=== PATIENT | male | born 1965 | race Caucasian/White ===

== ENCOUNTER 2024-10-31 04:26 | Emergency (ER) | payer MEDICAID, SELFPAY ==
--- NOTE | 2024-10-31 | ECG_ITS ---
Test Reason : CP Blood Pressure : */* mmHG Vent. Rate : 187 BPM Atrial Rate : * BPM P-R Int : * ms QRS Dur : 78 ms QT Int : 260 ms P-R-T Axes : * 70 44 degrees QTcB Int : 458 ms Supraventricular tachycardia Abnormal ECG No previous ECGs available Referred By: Generic ED Physician Electronically Signed By: NAYAN MEJIA
--- NOTE | 2024-10-31 | ECG_ITS ---
Test Reason : TACHYCARDIA Blood Pressure : */* mmHG Vent. Rate : 128 BPM Atrial Rate : 128 BPM P-R Int : 138 ms QRS Dur : 74 ms QT Int : 294 ms P-R-T Axes : 60 64 55 degrees QTcB Int : 429 ms Sinus tachycardia Otherwise normal ECG When compared with ECG of 31-Oct-2024 04:30, Rhythm change Referred By: Shila Major Electronically Signed By: NAYAN MEJIA
[2024-10-31 04:35] VITALS: BP 148/100; PULSE 182; RESP 16; O2SAT 97; BMI 29.6
[2024-10-31] MEDS: Adenosine 6 MG/2 ML VIAL IVPUSH (04:43)
--- NOTE | 2024-10-31 04:45 | ED.CHESTPAIN ---
HPI - Chest Pain General Chief Complaint: Chest Pain Stated Complaint: chest pain Time Seen by Provider: 10/31/24 04:36 Source: patient Mode of arrival: ambulatory Limitations: no limitations History of Present Illness ED Provider: Dr. Major [facility] narrative: This is a 59-year-old male presented hospital today for evaluation of chest pain and palpitation. Patient stated that he was drinking earlier last night however he did not have much to drink he went to take a shower and he felt very diaphoretic and developed chest pain. Upon arrival patient's heart rate was in the 180s. Appears to be in SVT patient was brought back to the room. Blood pressure is stable. Related Data Allergies Allergy/AdvReac Type Severity Reaction Status Date / Time No Known Allergies Allergy Unverified 10/31/24 04:37 Review of Systems Review of Systems: Pertinent review of systems as mentioned in HPI. All other system otherwise negative. [facility] Past Medical History [facility] Narrative: Medical history as mentioned in [facility] Social History Social History Alcohol intake: current Smoked in Last 30 Days: Yes Use of substances other than those prescribed or required for medical reasons: Yes Substance Use Type: Crack/Cocaine Advance Directives: No Advance Directives Information Provided: Yes Physical Exam Exam: Exam: General: Appears to be in distress, diaphoretic Head: Normacephalic, atraumatic ENT: oral mucosa moist, neck supple, no tracheal deviation Cardiovascular: Tachycardic rate, regular rhythm, no murmurs, rubbing, gallops Respiratory: CTAB, no wheeze, rales, rhonchi Gastrointestinal: Soft, non distended, non tender, non guarding Extremities: No limb pain or swelling, no calf tenderness Neurological: Awake and alert, no facial droop noted Skin: Warm and dry Psychiatric: Appropriate mood and thoughts Vital Signs: Vital Signs: Last Vital Signs Temp 97.4 F 10/31/24 06:08 Pulse 104 H 10/31/24 06:25 Resp 20 10/31/24 06:25 BP 136/88 10/31/24 06:25 Pulse Ox 96 10/31/24 06:25 O2 Del Method Room Air 10/31/24 06:25 BMI result Body Mass Index 29.6 Medications Administered Generic Name Dose Route Start Last Admin Trade Name Freq PRN Reason Stop Dose Admin Lactated Ringer's 1,000 mls @ 999 mls/hr 10/31/24 06:45 10/31/24 07:07 Lr IV 10/31/24 07:45 999 mls/hr .Q1H1M ROBERT Administration Discontinued Medications Generic Name Dose Route Start Last Admin Trade Name Moses PRN Reason Stop Dose Admin Adenosine 6 mg 10/31/24 04:37 10/31/24 04:43 Adenosine 6 Mg/2 Ml Vial IVPUSH 10/31/24 04:38 6 mg ONCE ONE Administration Sodium Chloride 1,000 mls @ 999 mls/hr 10/31/24 04:45 10/31/24 05:59 Ns IV 10/31/24 05:45 Infused .Q1H1M ROBERT Infusion Lactated Ringer's 1,000 mls @ 999 mls/hr 10/31/24 06:30 10/31/24 06:26 Lr IV 10/31/24 07:30 999 mls/hr .Q1H1M ROBERT Administration Ondansetron HCl 4 mg 10/31/24 04:46 10/31/24 04:49 Ondansetron Hcl 4 Mg/2 Ml Vial IVPUSH 10/31/24 04:47 4 mg ONCE ONE Administration Medical Decision Making Medical Decision Making MDM Narrative: 59-year-old male presented to the ER today and SVT. EKG was obtained. Patient's heart rate was 187 bpm. Patient's blood pressure is stable. I attempted vagal maneuver for the patient. However unsuccessful. 6 mg of IV adenosine was given to the patient. Patient is broken to sinus rhythm. Heart rate in the 140s. IV fluid given to patient. After 2 L IV fluid patient's heart rate has improved to upper 90s. Patient stated that his chest pain has improved. Blood pressure remained stable at this time. Offer obtain a chest x-ray for the patient however he declined. Patient states he feels well. We will plan to allow the patient to finish his IV fluid. And reassess patient. Patient may benefit outpatient follow up with Cardiology for SVT. On review of patient's lab work. He does have leukocytosis of 14.2 likely stress response to his SVT. Chemistries unremarkable. No sign of significant electrolyte abnormality. Ethanol level is not elevated. Patient stated he is feeling better at this time however he does get short of breath when he ambulates. I did offer CTA of the chest to rule out PE for the patient and further lab work and imaging. However patient is declining. Patient stated he would prefer to do this another day. He understands the risk of leaving including . Patient will be signing out AMA. Differential Diagnosis Differential Diagnoses: The differential diagnosis associated with the presentation includes SVT, ventricular tachycardia, AFib RVR Lab Data MDM Lab Attestation statement: I reviewed the patient's lab results. 10/31/24 05:20 10/31/24 05:20 Labs: Lab Results 10/31/24 Range/Units 05:20 WBC 14.2 H (4.8-10.8) X10*3/uL RBC 4.71 (4.60-5.80) X10*6/uL Hgb 14.4 (14.0-18.0) g/dl Hct 40.9 L (42.0-52.0) % MCV 86.8 (80.0-98.0) fL MCH 30.6 (27.0-33.0) pg MCHC 35.2 (31.0-36.0) g/dl RDW 13.3 (11.0-16.0) % Plt Count 292 (160-400) X10*3/uL MPV 9.8 (9.4-12.4) fL Immature Gran % (Auto) 0.4 (0.0-0.4) % Neut % (Auto) 79.8 H (45-73) % Lymph % (Auto) 13.1 L (20-40) % [place] % (Auto) 5.9 (2-11) % Eos % (Auto) 0.4 (0-4) % Baso % (Auto) 0.4 (0-2) % Lymph # (Auto) 1.9 (1.2-4.9) X10*3/uL [place] # (Auto) 0.8 (0.1-1.2) X10*3/uL Eos # (Auto) 0.1 (0.0-0.4) X10*3/uL Baso # (Auto) 0.1 (0.0-0.2) X10*3/uL Abs Immat Gran (auto) 0.06 H (0.00-0.03) X10*3/uL Absolute Neuts (auto) 11.3 H (2.0-8.3) x10*3/uL Absolute Nucleated RBC 0.000 (0.0-0.012) X10*3/uL Nucleated RBC % (auto) 0.0 (0.0-0.2) /100WBC Sodium 141 (135-145) mmol/L Potassium 3.8 (3.3-5.1) mmol/L Chloride 110 H (96-108) mmol/L Carbon Dioxide 21 L (22-29) mmol/L Anion Gap 14 (12-20) BUN 13 (9-16) mg/dL Creatinine 0.80 (0.5-1.4) mg/dL Estim Creat Clear Calc 117.1 Estimated GFR > 60 Random Glucose 110 (60-115) mg/dL Calcium 8.4 (8.4-10.2) mg/dL Magnesium 2.1 (1.6-2.6) mg/dL TSH 2.34 (0.32-4.0) uIU/mL Ethyl Alcohol < 10 mg/dL Independent Interpretation I performed an independent interpretation of an: EKG Critical Care Time Critical Care Time Critical Care Time: Yes Total Critical Care Time: 38 Attestation: Time is exclusive of separately billable procedures. Time includes: direct patient care, patient reassessment, coordination of patient care, interpretation of data (laboratory data, pulse oximetry, arterial blood gases and chest xrays), review of patient's medical records, medical consultation and documentation of patient care. Procedures excluded from critical care time: central intravenous line placement and electrocardiography. Discharge Plan Discharge Clinical Impression: SVT (supraventricular tachycardia) Patient Disposition: Left Against Medical Advice Instructions: Supraventricular Tachycardia (ED) Additional Instructions: I am worry about your shortness of breath from pulmonary embolism. Please follow up with your primary care doctor. IF you feel ready you may return to ED for further evaluation Referrals: [facility] [Provider Group] Print Language: Guamanian
[2024-10-31 04:49] VITALS: BP 138/100; PULSE 123; RESP 20; O2SAT 97
[2024-10-31 05:25] VITALS: BP 136/96; PULSE 113; RESP 16; O2SAT 97
[2024-10-31 05:25] LABS: Hematocrit 40.9 % (42.0-52.0); Hemoglobin 14.4 g/dl (14.0-18.0); Imm Gran Abs Auto 0.06 X10*3/uL (0.00-0.03); Imm Gran Pct Auto 0.4 % (0.0-0.4); Lymphocytes Absolute Auto 1.9 X10*3/uL (1.2-4.9); MANUAL DIFF FLAG NO; Mean Corpuscular HGB Conc 35.2 g/dl (31.0-36.0); Mean Corpuscular Hemoglobin 30.6 pg (27.0-33.0); Mean Corpuscular Volume 86.8 fL (80.0-98.0); NRBC Abs Auto 0.000 X10*3/uL (0.0-0.012); NRBC Pct Auto 0.0 /100WBC (0.0-0.2); Platelet Count 292 X10*3/uL (160-400); Red Blood Count 4.71 X10*6/uL (4.60-5.80); White Blood Count 14.2 X10*3/uL (4.8-10.8)
[2024-10-31 05:49] LABS: Anion Gap 14 (12-20); Blood Urea Nitrogen 13 mg/dL (9-16); Calcium 8.4 mg/dL (8.4-10.2); Carbon Dioxide 21 mmol/L (22-29); Chloride 110 mmol/L (96-108); Creatinine Clr Calc Pharmacy 117.1; Estimated Glomerular Filt Rate > 60; Magnesium 2.1 mg/dL (1.6-2.6); Potassium 3.8 mmol/L (3.3-5.1); Sodium 141 mmol/L (135-145)
[2024-10-31 06:08] VITALS: TEMP 36.3
[2024-10-31 06:25] VITALS: BP 136/88; PULSE 104; RESP 20; O2SAT 96
[2024-10-31] MEDS: Lactated Ringers 1,000 ML 999 ML IV ×2 (06:26→07:07)
--- NOTE | 2024-10-31 07:11 | PC.NURSE ---
This Rn assumed care of patient @ 0700 Patient c/o chest pain 04/21 non radiating HR 95, on equipment monitor phototypesetting NSR Currently running LR in IV 20 RAC Plan is to finish up with fluids and reassess
[2024-10-31 08:30] VITALS: BP 136/88; PULSE 95; RESP 20; TEMP 36.8; O2SAT 96
== END 2024-10-31 08:31 | disposition left against medical advice (07) ==
PROVIDERS: Emergency Provider Student in an Organized Health Care Education/Training Program
DX: I47.10 Supraventricular tachycardia, unspecified (principal); R07.89 Other chest pain; R11.0 Nausea; Z51.81 Encounter for therapeutic drug level monitoring; Z79.899 Other long term (current) drug therapy
CPT/HCPCS: 36415; 80048; 80307; 83735; 84443; 85025; 93005; 96361; 96374; 96375; 99284; 99285; J0153; J2405; J7120

== ENCOUNTER → 2024-10-31 04:30 | Outpatient (BNV) | payer MEDICAID, SELFPAY | PROVIDERS: Emergency Provider Student in an Organized Health Care Education/Training Program; Visit Provider Internal Medicine | DX: I47.10 Supraventricular tachycardia, unspecified (principal); R94.31 Abnormal electrocardiogram [ECG] [EKG] | CPT/HCPCS: 93010 ==